=== PATIENT | female | born 1955 | race Caucasian/White ===

== ENCOUNTER 2017-04-16 21:37 | Emergency (ER) | payer BC, OTHER ==
[~2017-04-16] VITALS: Ht 165.1 cm; Wt 53.6 kg
[2017-04-16] MEDS ORDERED: NS 1,000 ML IV SCH (22:00)
[2017-04-16] MEDS ORDERED: MORPHINE 2 MG/ML 1ML SYRINGE IV ONE (22:00)
[2017-04-16] MEDS ORDERED: ONDANSETRON 4MG/2ML VIAL (J2405) IV ONE (22:00)
[2017-04-16 23:09] LABS: BASO % 0.1 % (0.0-1.0); EOS # 0.1 10^3/uL (0.0-0.50); EOS % 0.8 % (0.0-3.0); IMMATURE GRANULOCYTE % 0.5 % (0-0); LYMPH # 1.1 10^3/uL (1.5-4.5); MEAN CORPUSCULAR HEMOGLOBIN 32.8 pg (27.0-33.0); MEAN CORPUSCULAR HGB CONC 34.9 g/dl (32.0-36.5); MEAN CORPUSCULAR VOLUME 94.1 fl (80.0-96.0); MONO # 0.9 10^3/uL (0.0-0.8); MONO % 10.5 % (0.0-5.0); NEUTROPHILS # 6.6 10^3/uL (1.8-7.7); NEUTROPHILS % 75.1 % (36.0-66.0); PLATELET COUNT, AUTOMATED 262 10^3/uL (150-450); RED CELL DISTRIBUTION WIDTH 13.2 % (11.5-14.5); WHITE BLOOD COUNT 8.8 10^3/uL (4.0-10.0)
[2017-04-16 23:22] LABS: INR 0.98
[2017-04-16] MEDS ORDERED: HEPARIN DRIP 25,000 UNITS in APPROPRIATE DILUENT 1 EA IV SCH (23:33)
[2017-04-16] MEDS ORDERED: HEPARIN SOD (PORCINE) 5000 UNITS/ML VIAL IV ONE (23:45)
[2017-04-16 23:52] LABS: BLOOD UREA NITROGEN 11 MG/DL (7-18); CALCIUM LEVEL 8.5 MG/DL (8.8-10.2); CARBON DIOXIDE LEVEL 24 MEQ/L (21-32); CHLORIDE LEVEL 87 MEQ/L (98-107); CREATININE FOR GFR 0.62 MG/DL (0.55-1.02); GLUCOSE, FASTING 92 MG/DL (80-110); POTASSIUM SERUM 3.8 MEQ/L (3.5-5.1)
[2017-04-17] MEDS ORDERED: ISOVUE-370 76% 100ML VIAL (Q9967) As Ordered ONE (00:03)
[2017-04-17 00:08] VITALS: BP 157/68
[2017-04-17 00:12] LABS: ANION GAP 10 MEQ/L (8-16); SODIUM LEVEL 121 MEQ/L (136-145)
--- NOTE | 2017-04-17 07:59 | ECGEPIP ---
Stationary ECG Study [facility] - ED Test Date: 2017-04-16 Pat Name: BRIDGETT MORA Department: Room: - Gender: F [employer] Supervisor: eva : [id number] Requested By: CATRACHITO HENDERSON Order Number: [id number] Reading MD: Vasiliy Valencia Measurements Intervals [place] Rate: 72 P: 85 [place]: 185 QRS: 53 QRSD: 85 T: 79 QT: 438 QTc: 481 Interpretive Statements SINUS RHYTHM LEFT VENTRICULAR HYPERTROPHY AND ST-T CHANGE NO PRIORS FOR COMPARISON Electronically Signed On 04-17-2017 7:58:54 EST by Vasiliy Valencia
== END 2017-04-17 01:54 | disposition short-term general hospital (02) ==
LOC: M ED 21:37
DX: I99.8 Other disorder of circulatory system (principal); Z88.8 Allergy status to other drugs, medicaments and biological substances; Z86.79 Personal history of other diseases of the circulatory system
CPT/HCPCS: 80048; 82550; 82553; 85025; 85610; 85730; 93005; 96374; 96375; 96376; 99291; J2405; Q9967

== ENCOUNTER 2017-12-19 13:25 | Inpatient (IN) | payer BC, OTHER ==
[~2017-12-19 13:25] MED LIST: BISACODYL 10 MG SUPP PR; FLEET ENEMA PR; MIRALAX *UNIT DOSE* 17GM PACKET PO; MOM 30ML SUSPENSION UDC PO; ONDANSETRON 4 MG TAB (S0181) PO; ONDANSETRON 4MG/2ML VIAL (J2405) IM; guaiFENesin SYRUP 200 MG/10 ML UDC PO
[2017-12-19] MEDS: PREGABALIN 50 MG CAP (LYRICA) PO ×2 (15:17→22:01)
[2017-12-19] MEDS: ACETAMINOPHEN TAB 650MG DOSE (2X325MG) PO ×2 (15:18→23:32)
[2017-12-19] MEDS ORDERED: CILOSTAZOL 100 MG TAB (PLETAL) PO (17:30)
[2017-12-19] MEDS: RIVAROXABAN 20 MG TAB (XARELTO) PO (18:15)
[2017-12-19] MEDS: SIMETHICONE 80 MG CHEW TAB PO ×2 (18:16→23:29)
[2017-12-19] MEDS: SENNA 8.6 MG TAB (SENOKOT) PO (22:00)
[2017-12-19] MEDS: traMADol 50 MG TAB PO (22:01)
[2017-12-19] MEDS: ATORVASTATIN 20 MG TAB PO (22:02)
[2017-12-19] MEDS ORDERED: IPRATROPIUM 0.5MG/ALBUTEROL 2.5MG INH SOL UD 3ML (DUONEB)(J7620) NEB (23:45)
[2017-12-20] MEDS: SIMETHICONE 80 MG CHEW TAB PO ×4 (05:54→23:32)
[2017-12-20] MEDS: ACETAMINOPHEN TAB 650MG DOSE (2X325MG) PO (05:54)
[2017-12-20 07:00] LABS: BASO % 0.4 % (0.0-1.0); EOS # 0.1 10^3/uL (0.0-0.50); EOS % 1.7 % (0.0-3.0); HEMATOCRIT 23.9 % (36.0-47.0); HEMOGLOBIN 7.7 g/dl (12.0-15.5); IMMATURE GRANULOCYTE % 0.5 % (0-3.0); LYMPH # 1.7 10^3/uL (1.5-4.5); LYMPH % 21.4 % (24.0-44.0); MEAN CORPUSCULAR HEMOGLOBIN 30.1 pg (27.0-33.0); MEAN CORPUSCULAR HGB CONC 32.2 g/dl (32.0-36.5); MEAN CORPUSCULAR VOLUME 93.4 fl (80.0-96.0); MONO # 0.8 10^3/uL (0.0-0.8); MONO % 10.3 % (0.0-5.0); NEUTROPHILS # 5.3 10^3/uL (1.8-7.7); NEUTROPHILS % 65.7 % (36.0-66.0); PLATELET COUNT, AUTOMATED 726 10^3/uL (150-450); RED BLOOD COUNT 2.56 10^6/uL (4.00-5.40); RED CELL DISTRIBUTION WIDTH 14.1 % (11.5-14.5)
[2017-12-20 07:26] LABS: ALBUMIN 2.4 GM/DL (3.2-5.2); ALBUMIN/GLOBULIN RATIO 0.47 (1.00-1.93); ALKALINE PHOSPHATASE 84 U/L (45-117); ALT/SGPT 30 U/L (12-78); ANION GAP 8 MEQ/L (8-16); AST/SGOT 28 U/L (7-37); BILIRUBIN,TOTAL 0.2 MG/DL (0.2-1.0); BLOOD UREA NITROGEN 16 MG/DL (7-18); CALCIUM LEVEL 8.6 MG/DL (8.8-10.2); CARBON DIOXIDE LEVEL 27 MEQ/L (21-32); CHLORIDE LEVEL 104 MEQ/L (98-107); CREATININE FOR GFR 0.75 MG/DL (0.55-1.30); GLOMERULAR FILTRATION RATE > 60.0 (>45); GLUCOSE, FASTING 92 MG/DL (70-100); POTASSIUM SERUM 3.7 MEQ/L (3.5-5.1); SODIUM LEVEL 139 MEQ/L (136-145); TOTAL PROTEIN 7.5 GM/DL (6.4-8.2)
[2017-12-20] MEDS: THIAMINE 100 MG TAB PO (08:46)
[2017-12-20] MEDS: FOLIC ACID 1 MG TAB PO (08:46)
[2017-12-20] MEDS: FUROSEMIDE 40 MG TAB PO (08:46)
[2017-12-20] MEDS: amLODIPine 5 MG TAB PO (08:46)
[2017-12-20] MEDS: BISOPROLOL FUMARATE 5 MG TAB PO (08:46)
[2017-12-20] MEDS: MAGNESIUM OXIDE 400 MG TAB (MAG-OX) PO (08:47)
[2017-12-20] MEDS: CLOPIDOGREL 75 MG TAB PO (08:47)
[2017-12-20] MEDS: PREGABALIN 50 MG CAP (LYRICA) PO ×3 (08:47→21:29)
[2017-12-20] MEDS: SERTRALINE HCL 50 MG TAB PO (08:47)
[2017-12-20] MEDS: NICOTINE 14 MG/24 HR TRANSDERMAL TD (08:48)
[2017-12-20] MEDS: traMADol 50 MG TAB PO ×3 (10:27→21:29)
[2017-12-20] MEDS: RIVAROXABAN 20 MG TAB (XARELTO) PO (17:14)
[2017-12-20] MEDS: ATORVASTATIN 20 MG TAB PO (21:29)
[2017-12-20] MEDS: SENNA 8.6 MG TAB (SENOKOT) PO (21:29)
[2017-12-21] MEDS: SIMETHICONE 80 MG CHEW TAB PO ×3 (06:00→17:09)
[2017-12-21 07:37] LABS: ANION GAP 6 MEQ/L (8-16); BLOOD UREA NITROGEN 14 MG/DL (7-18); CALCIUM LEVEL 8.9 MG/DL (8.8-10.2); CARBON DIOXIDE LEVEL 29 MEQ/L (21-32); CHLORIDE LEVEL 103 MEQ/L (98-107); CREATININE FOR GFR 0.81 MG/DL (0.55-1.30); GLOMERULAR FILTRATION RATE > 60.0 (>45); GLUCOSE, FASTING 84 MG/DL (70-100); POTASSIUM SERUM 3.9 MEQ/L (3.5-5.1); SODIUM LEVEL 138 MEQ/L (136-145)
[2017-12-21] MEDS: FOLIC ACID 1 MG TAB PO (08:15)
[2017-12-21] MEDS: CLOPIDOGREL 75 MG TAB PO (08:16)
[2017-12-21] MEDS: SERTRALINE HCL 50 MG TAB PO (08:16)
[2017-12-21] MEDS: NICOTINE 14 MG/24 HR TRANSDERMAL TD (08:16)
[2017-12-21] MEDS: amLODIPine 5 MG TAB PO (08:16)
[2017-12-21] MEDS: PREGABALIN 50 MG CAP (LYRICA) PO ×3 (08:16→21:29)
[2017-12-21] MEDS: BISOPROLOL FUMARATE 5 MG TAB PO (08:17)
[2017-12-21] MEDS: THIAMINE 100 MG TAB PO (08:17)
[2017-12-21] MEDS: FUROSEMIDE 40 MG TAB PO (08:17)
[2017-12-21] MEDS: MAGNESIUM OXIDE 400 MG TAB (MAG-OX) PO (08:18)
[2017-12-21] MEDS: traMADol 50 MG TAB PO ×3 (08:18→17:09)
[2017-12-21] MEDS: RIVAROXABAN 20 MG TAB (XARELTO) PO (17:09)
[2017-12-21] MEDS: SENNA 8.6 MG TAB (SENOKOT) PO (21:29)
[2017-12-21] MEDS: BISACODYL 5 MG TAB PO (21:29)
[2017-12-21] MEDS: ATORVASTATIN 20 MG TAB PO (21:29)
[2017-12-22] MEDS: traMADol 50 MG TAB PO ×3 (03:42→13:11)
[2017-12-22] MEDS: SIMETHICONE 80 MG CHEW TAB PO ×3 (06:00→11:54)
[2017-12-22] MEDS: FOLIC ACID 1 MG TAB PO (08:04)
[2017-12-22] MEDS: amLODIPine 5 MG TAB PO (08:04)
[2017-12-22] MEDS: THIAMINE 100 MG TAB PO (08:04)
[2017-12-22] MEDS: PREGABALIN 50 MG CAP (LYRICA) PO (08:04)
[2017-12-22] MEDS: CLOPIDOGREL 75 MG TAB PO (08:05)
[2017-12-22] MEDS: SERTRALINE HCL 50 MG TAB PO (08:05)
[2017-12-22] MEDS: MAGNESIUM OXIDE 400 MG TAB (MAG-OX) PO (08:05)
[2017-12-22] MEDS: BISOPROLOL FUMARATE 5 MG TAB PO (08:05)
[2017-12-22] MEDS: FUROSEMIDE 40 MG TAB PO (08:05)
[2017-12-22] MEDS: NICOTINE 14 MG/24 HR TRANSDERMAL TD (08:06)
[2017-12-22 08:11] LABS: ANION GAP 7 MEQ/L (8-16); BLOOD UREA NITROGEN 14 MG/DL (7-18); CALCIUM LEVEL 8.8 MG/DL (8.8-10.2); CARBON DIOXIDE LEVEL 29 MEQ/L (21-32); CHLORIDE LEVEL 104 MEQ/L (98-107); CREATININE FOR GFR 0.85 MG/DL (0.55-1.30); GLOMERULAR FILTRATION RATE > 60.0 (>45); GLUCOSE, FASTING 88 MG/DL (70-100); POTASSIUM SERUM 3.9 MEQ/L (3.5-5.1); SODIUM LEVEL 140 MEQ/L (136-145)
[2017-12-22 09:33] LABS: BASO % 0.2 % (0.0-1.0); EOS # 0.1 10^3/uL (0.0-0.50); EOS % 1.3 % (0.0-3.0); HEMATOCRIT 25.3 % (36.0-47.0); HEMOGLOBIN 8.1 g/dl (12.0-15.5); IMMATURE GRANULOCYTE % 0.2 % (0-3.0); LYMPH # 1.6 10^3/uL (1.5-4.5); LYMPH % 19.3 % (24.0-44.0); MEAN CORPUSCULAR HEMOGLOBIN 30.7 pg (27.0-33.0); MEAN CORPUSCULAR VOLUME 95.8 fl (80.0-96.0); MONO # 0.8 10^3/uL (0.0-0.8); MONO % 9.4 % (0.0-5.0); NEUTROPHILS # 5.7 10^3/uL (1.8-7.7); NEUTROPHILS % 69.6 % (36.0-66.0); PLATELET COUNT, AUTOMATED 697 10^3/uL (150-450); RED BLOOD COUNT 2.64 10^6/uL (4.00-5.40); RED CELL DISTRIBUTION WIDTH 14.3 % (11.5-14.5); WHITE BLOOD COUNT 8.2 10^3/uL (4.0-10.0)
[2017-12-22 10:16] LABS: ERYTHROCYTE SEDIMENTATION RATE 127 mm/hr (0-30)
[2017-12-22 13:42] LABS: INR 1.59; PROTHROMBIN TIME 19.3 SECONDS (12.1-14.4)
[2017-12-22 13:43] LABS: PARTIAL THROMBOPLASTIN TIME 55.3 SECONDS (25.4-37.6)
[2017-12-22] MEDS: MORPHINE 4 MG/ML 1ML VIAL/SYRINGE (J2270) IV (15:28)
[2017-12-23] MEDS: CLOPIDOGREL 75 MG TAB PO (09:00)
[2017-12-23] MEDS: SERTRALINE HCL 50 MG TAB PO (09:00)
[2017-12-23] MEDS: amLODIPine 5 MG TAB PO (09:00)
[2017-12-23] MEDS: FUROSEMIDE 40 MG TAB PO (09:00)
[2017-12-23] MEDS: FOLIC ACID 1 MG TAB PO (09:00)
[2017-12-23] MEDS: NICOTINE 14 MG/24 HR TRANSDERMAL TD (09:00)
[2017-12-23] MEDS: BISOPROLOL FUMARATE 5 MG TAB PO (09:00)
[2017-12-23] MEDS: MAGNESIUM OXIDE 400 MG TAB (MAG-OX) PO (09:00)
[2017-12-23] MEDS ORDERED: guaiFENesin SYRUP 200 MG/10 ML UDC PO (14:00)
[2017-12-23] MEDS ORDERED: BISACODYL 10 MG SUPP PR (14:00)
[2017-12-23] MEDS ORDERED: SIMETHICONE 80 MG CHEW TAB PO (14:00)
[2017-12-23] MEDS ORDERED: IPRATROPIUM 0.5MG/ALBUTEROL 2.5MG INH SOL UD 3ML (DUONEB)(J7620) NEB (14:00)
[2017-12-23] MEDS ORDERED: BISACODYL 5 MG TAB PO (14:00)
[2017-12-23] MEDS ORDERED: MOM 30ML SUSPENSION UDC PO (14:00)
[2017-12-23] MEDS ORDERED: MIRALAX *UNIT DOSE* 17GM PACKET PO (14:00)
[2017-12-23] MEDS ORDERED: ONDANSETRON 4MG/2ML VIAL (J2405) IM (14:00)
[2017-12-23] MEDS ORDERED: FLEET ENEMA PR (14:00)
[2017-12-23] MEDS: PREGABALIN 50 MG CAP (LYRICA) PO ×2 (15:30→20:45)
[2017-12-23] MEDS: RIVAROXABAN 20 MG TAB (XARELTO) PO (18:26)
[2017-12-23] MEDS: SENNA 8.6 MG TAB (SENOKOT) PO (20:45)
[2017-12-23] MEDS: ATORVASTATIN 20 MG TAB PO (20:45)
[2017-12-23] MEDS: traMADol 50 MG TAB PO (23:39)
[2017-12-24] MEDS: FOLIC ACID 1 MG TAB PO (08:03)
[2017-12-24] MEDS: FUROSEMIDE 40 MG TAB PO (08:03)
[2017-12-24] MEDS: THIAMINE 100 MG TAB PO (08:03)
[2017-12-24] MEDS: PREGABALIN 50 MG CAP (LYRICA) PO ×3 (08:03→21:20)
[2017-12-24] MEDS: BISOPROLOL FUMARATE 5 MG TAB PO (08:04)
[2017-12-24] MEDS: MAGNESIUM OXIDE 400 MG TAB (MAG-OX) PO (08:05)
[2017-12-24] MEDS: traMADol 50 MG TAB PO ×3 (08:05→21:21)
[2017-12-24] MEDS: CLOPIDOGREL 75 MG TAB PO (08:05)
[2017-12-24] MEDS: NICOTINE 14 MG/24 HR TRANSDERMAL TD (08:06)
[2017-12-24] MEDS: amLODIPine 5 MG TAB PO (08:06)
[2017-12-24] MEDS: SERTRALINE HCL 50 MG TAB PO (08:06)
[2017-12-24] MEDS: RIVAROXABAN 20 MG TAB (XARELTO) PO (16:58)
[2017-12-24] MEDS: ACETAMINOPHEN TAB 650MG DOSE (2X325MG) PO (18:05)
[2017-12-24] MEDS: ATORVASTATIN 20 MG TAB PO (21:20)
[2017-12-24] MEDS: SENNA 8.6 MG TAB (SENOKOT) PO (21:20)
[2017-12-25] MEDS: NICOTINE 14 MG/24 HR TRANSDERMAL TD (09:45)
[2017-12-25] MEDS: THIAMINE 100 MG TAB PO (09:46)
[2017-12-25] MEDS: FOLIC ACID 1 MG TAB PO (09:46)
[2017-12-25] MEDS: BISOPROLOL FUMARATE 5 MG TAB PO (09:46)
[2017-12-25] MEDS: FUROSEMIDE 40 MG TAB PO (09:46)
[2017-12-25] MEDS: SERTRALINE HCL 50 MG TAB PO (09:46)
[2017-12-25] MEDS: CLOPIDOGREL 75 MG TAB PO (09:46)
[2017-12-25] MEDS: amLODIPine 5 MG TAB PO (09:46)
[2017-12-25] MEDS: PREGABALIN 50 MG CAP (LYRICA) PO ×3 (09:46→20:35)
[2017-12-25] MEDS: MAGNESIUM OXIDE 400 MG TAB (MAG-OX) PO (09:46)
[2017-12-25] MEDS: RIVAROXABAN 20 MG TAB (XARELTO) PO (17:09)
[2017-12-25] MEDS: ATORVASTATIN 20 MG TAB PO (20:35)
[2017-12-25] MEDS: SENNA 8.6 MG TAB (SENOKOT) PO (20:35)
[2017-12-26] MEDS: ONDANSETRON 4 MG TAB (S0181) PO (03:27)
[2017-12-26] MEDS: PREGABALIN 50 MG CAP (LYRICA) PO ×3 (09:23→20:15)
[2017-12-26] MEDS: SERTRALINE HCL 50 MG TAB PO (09:23)
[2017-12-26] MEDS: ACETAMINOPHEN TAB 650MG DOSE (2X325MG) PO (09:25)
[2017-12-26] MEDS: THIAMINE 100 MG TAB PO (09:25)
[2017-12-26] MEDS: MAGNESIUM OXIDE 400 MG TAB (MAG-OX) PO (09:25)
[2017-12-26] MEDS: MAALOX 30 ML SUSP *UDC PO (09:25)
[2017-12-26] MEDS: CLOPIDOGREL 75 MG TAB PO (09:25)
[2017-12-26] MEDS: FOLIC ACID 1 MG TAB PO (09:26)
[2017-12-26] MEDS: amLODIPine 5 MG TAB PO (09:26)
[2017-12-26] MEDS: BISOPROLOL FUMARATE 5 MG TAB PO (09:26)
[2017-12-26] MEDS: FUROSEMIDE 40 MG TAB PO (09:26)
[2017-12-26] MEDS ORDERED: ISOVUE-370 76% 100ML VIAL (Q9967) As Ordered (09:27)
[2017-12-26] MEDS: NICOTINE 14 MG/24 HR TRANSDERMAL TD (09:27)
[2017-12-26 09:37] LABS: BASO % 0.3 % (0.0-1.0); EOS # 0.1 10^3/uL (0.0-0.50); EOS % 1.2 % (0.0-3.0); HEMATOCRIT 26.3 % (36.0-47.0); HEMOGLOBIN 8.3 g/dl (12.0-15.5); IMMATURE GRANULOCYTE % 0.4 % (0-3.0); LYMPH # 1.4 10^3/uL (1.5-4.5); LYMPH % 18.4 % (24.0-44.0); MEAN CORPUSCULAR HEMOGLOBIN 30.3 pg (27.0-33.0); MEAN CORPUSCULAR HGB CONC 31.6 g/dl (32.0-36.5); MONO # 1.1 10^3/uL (0.0-0.8); MONO % 14.1 % (0.0-5.0); NEUTROPHILS % 65.6 % (36.0-66.0); PLATELET COUNT, AUTOMATED 485 10^3/uL (150-450); RED BLOOD COUNT 2.74 10^6/uL (4.00-5.40); RED CELL DISTRIBUTION WIDTH 14.3 % (11.5-14.5); WHITE BLOOD COUNT 7.7 10^3/uL (4.0-10.0)
[2017-12-26 09:49] LABS: ALBUMIN 2.4 GM/DL (3.2-5.2); ALBUMIN/GLOBULIN RATIO 0.47 (1.00-1.93); ALKALINE PHOSPHATASE 76 U/L (45-117); ALT/SGPT 17 U/L (12-78); ANION GAP 9 MEQ/L (8-16); AST/SGOT 21 U/L (7-37); BILIRUBIN,TOTAL 0.3 MG/DL (0.2-1.0); BLOOD UREA NITROGEN 13 MG/DL (7-18); CALCIUM LEVEL 8.9 MG/DL (8.8-10.2); CARBON DIOXIDE LEVEL 27 MEQ/L (21-32); CHLORIDE LEVEL 107 MEQ/L (98-107); CREATININE FOR GFR 0.91 MG/DL (0.55-1.30); GLOMERULAR FILTRATION RATE > 60.0 (>45); GLUCOSE, FASTING 94 MG/DL (70-100); MAGNESIUM LEVEL 1.7 MG/DL (1.8-2.4); POTASSIUM SERUM 3.2 MEQ/L (3.5-5.1); SODIUM LEVEL 143 MEQ/L (136-145); TOTAL PROTEIN 7.5 GM/DL (6.4-8.2)
[2017-12-26 09:50] LABS: CK-MB VALUE MASS < 1.0 NG/ML (<3.6); CPK CREATINE PHOSPHOKINASE 30 U/L (26-192); MB/CK RELATIVE INDEX 3.33 (< OR =4); TROPONIN I < 0.02 NG/ML (< 0.10)
[2017-12-26] MEDS ORDERED: LORazepam 0.5 MG TAB PO (12:15)
[2017-12-26] MEDS: LORazepam 1 MG TAB PO (13:04)
[2017-12-26] MEDS: POTASSIUM CHLORIDE 10 MEQ SR TABLET PO (13:04)
[2017-12-26] MEDS: MAG SULF 1GM/100ML (MAG RUN) 1 GM in APPROPRIATE DILUENT 1 EA IV (13:59)
[2017-12-26 15:48] LABS: CK-MB VALUE MASS < 1.0 NG/ML (<3.6); CPK CREATINE PHOSPHOKINASE 35 U/L (26-192); MB/CK RELATIVE INDEX 2.85 (< OR =4); TROPONIN I < 0.02 NG/ML (< 0.10)
[2017-12-26] MEDS: RIVAROXABAN 20 MG TAB (XARELTO) PO (17:10)
[2017-12-26] MEDS: SENNA 8.6 MG TAB (SENOKOT) PO (20:15)
[2017-12-26] MEDS: ATORVASTATIN 20 MG TAB PO (20:15)
[2017-12-27 06:57] LABS: HEMATOCRIT 25.5 % (36.0-47.0); HEMOGLOBIN 8.1 g/dl (12.0-15.5); MEAN CORPUSCULAR HEMOGLOBIN 29.6 pg (27.0-33.0); MEAN CORPUSCULAR HGB CONC 31.8 g/dl (32.0-36.5); MEAN CORPUSCULAR VOLUME 93.1 fl (80.0-96.0); PLATELET COUNT, AUTOMATED 483 10^3/uL (150-450); RED BLOOD COUNT 2.74 10^6/uL (4.00-5.40); RED CELL DISTRIBUTION WIDTH 14.5 % (11.5-14.5); WHITE BLOOD COUNT 7.2 10^3/uL (4.0-10.0)
[2017-12-27 07:23] LABS: ANION GAP 8 MEQ/L (8-16); BLOOD UREA NITROGEN 14 MG/DL (7-18); CALCIUM LEVEL 8.9 MG/DL (8.8-10.2); CARBON DIOXIDE LEVEL 28 MEQ/L (21-32); CHLORIDE LEVEL 106 MEQ/L (98-107); CREATININE FOR GFR 0.73 MG/DL (0.55-1.30); GLOMERULAR FILTRATION RATE > 60.0 (>45); GLUCOSE, FASTING 81 MG/DL (70-100); POTASSIUM SERUM 4.6 MEQ/L (3.5-5.1); SODIUM LEVEL 142 MEQ/L (136-145)
[2017-12-27] MEDS: THIAMINE 100 MG TAB PO (09:33)
[2017-12-27] MEDS: FUROSEMIDE 40 MG TAB PO (09:33)
[2017-12-27] MEDS: MAGNESIUM OXIDE 400 MG TAB (MAG-OX) PO (09:33)
[2017-12-27] MEDS: SERTRALINE HCL 50 MG TAB PO (09:33)
[2017-12-27] MEDS: PREGABALIN 50 MG CAP (LYRICA) PO ×3 (09:33→21:08)
[2017-12-27] MEDS: FOLIC ACID 1 MG TAB PO (09:34)
[2017-12-27] MEDS: BISOPROLOL FUMARATE 5 MG TAB PO (09:34)
[2017-12-27] MEDS: NICOTINE 14 MG/24 HR TRANSDERMAL TD (09:34)
[2017-12-27] MEDS: amLODIPine 5 MG TAB PO (09:34)
[2017-12-27] MEDS: CLOPIDOGREL 75 MG TAB PO (09:34)
[2017-12-27] MEDS: RIVAROXABAN 20 MG TAB (XARELTO) PO (17:07)
[2017-12-27] MEDS: ACETAMINOPHEN TAB 650MG DOSE (2X325MG) PO (19:16)
[2017-12-27] MEDS: SENNA 8.6 MG TAB (SENOKOT) PO (21:08)
[2017-12-27] MEDS: ATORVASTATIN 20 MG TAB PO (21:08)
[2017-12-28] MEDS: ACETAMINOPHEN TAB 650MG DOSE (2X325MG) PO ×2 (07:03→17:20)
[2017-12-28] MEDS: SERTRALINE HCL 50 MG TAB PO (09:07)
[2017-12-28] MEDS: FOLIC ACID 1 MG TAB PO (09:07)
[2017-12-28] MEDS: FUROSEMIDE 40 MG TAB PO (09:07)
[2017-12-28] MEDS: CLOPIDOGREL 75 MG TAB PO (09:07)
[2017-12-28] MEDS: THIAMINE 100 MG TAB PO (09:07)
[2017-12-28] MEDS: MAGNESIUM OXIDE 400 MG TAB (MAG-OX) PO (09:08)
[2017-12-28] MEDS: NICOTINE 14 MG/24 HR TRANSDERMAL TD (09:08)
[2017-12-28] MEDS: BISOPROLOL FUMARATE 5 MG TAB PO (09:08)
[2017-12-28] MEDS: PREGABALIN 50 MG CAP (LYRICA) PO ×3 (09:08→22:30)
[2017-12-28] MEDS: amLODIPine 5 MG TAB PO (09:09)
[2017-12-28] MEDS: RIVAROXABAN 20 MG TAB (XARELTO) PO (17:20)
[2017-12-28] MEDS: SENNA 8.6 MG TAB (SENOKOT) PO (21:00)
[2017-12-28] MEDS: ATORVASTATIN 20 MG TAB PO (22:30)
[2017-12-29 07:17] LABS: HEMATOCRIT 27.7 % (36.0-47.0); HEMOGLOBIN 8.7 g/dl (12.0-15.5); MEAN CORPUSCULAR HEMOGLOBIN 29.7 pg (27.0-33.0); MEAN CORPUSCULAR HGB CONC 31.4 g/dl (32.0-36.5); MEAN CORPUSCULAR VOLUME 94.5 fl (80.0-96.0); PLATELET COUNT, AUTOMATED 416 10^3/uL (150-450); RED BLOOD COUNT 2.93 10^6/uL (4.00-5.40); RED CELL DISTRIBUTION WIDTH 14.2 % (11.5-14.5); WHITE BLOOD COUNT 8.3 10^3/uL (4.0-10.0)
[2017-12-29 07:37] LABS: ANION GAP 9 MEQ/L (8-16); BLOOD UREA NITROGEN 12 MG/DL (7-18); CALCIUM LEVEL 8.9 MG/DL (8.8-10.2); CARBON DIOXIDE LEVEL 28 MEQ/L (21-32); CHLORIDE LEVEL 107 MEQ/L (98-107); CREATININE FOR GFR 0.74 MG/DL (0.55-1.30); GLOMERULAR FILTRATION RATE > 60.0 (>45); GLUCOSE, FASTING 87 MG/DL (70-100); MAGNESIUM LEVEL 2.1 MG/DL (1.8-2.4); POTASSIUM SERUM 4.4 MEQ/L (3.5-5.1); SODIUM LEVEL 144 MEQ/L (136-145)
[2017-12-29] MEDS: ACETAMINOPHEN TAB 650MG DOSE (2X325MG) PO (08:43)
[2017-12-29] MEDS: CLOPIDOGREL 75 MG TAB PO (08:44)
[2017-12-29] MEDS: NICOTINE 14 MG/24 HR TRANSDERMAL TD (08:44)
[2017-12-29] MEDS: THIAMINE 100 MG TAB PO (08:44)
[2017-12-29] MEDS: MAGNESIUM OXIDE 400 MG TAB (MAG-OX) PO (08:44)
[2017-12-29] MEDS: SERTRALINE HCL 50 MG TAB PO (08:44)
[2017-12-29] MEDS: FUROSEMIDE 40 MG TAB PO (08:44)
[2017-12-29] MEDS: BISOPROLOL FUMARATE 5 MG TAB PO (08:44)
[2017-12-29] MEDS: FOLIC ACID 1 MG TAB PO (08:45)
[2017-12-29] MEDS: amLODIPine 5 MG TAB PO (08:45)
[2017-12-29] MEDS: PREGABALIN 50 MG CAP (LYRICA) PO ×2 (08:45→14:33)
[2017-12-29] MEDS: traMADol 50 MG TAB PO (14:33)
== END 2017-12-29 14:35 | disposition home or self-care (01) | DRG 58 ==
LOC: M PM&R 13:25
DX: I69.398 Other sequelae of cerebral infarction (principal); K55.1 Chronic vascular disorders of intestine; E83.42 Hypomagnesemia; I10 Essential (primary) hypertension; I73.9 Peripheral vascular disease, unspecified; F17.210 Nicotine dependence, cigarettes, uncomplicated; J44.9 Chronic obstructive pulmonary disease, unspecified; F10.10 Alcohol abuse, uncomplicated; F32.9 Major depressive disorder, single episode, unspecified; R14.0 Abdominal distension (gaseous); Z79.899 Other long term (current) drug therapy; Z88.6 Allergy status to analgesic agent; Z74.09 Other reduced mobility; F41.9 Anxiety disorder, unspecified; E87.6 Hypokalemia

== ENCOUNTER → 2018-05-11 | Outpatient (CLI) | payer BC, OTHER ==
[~2018-05-11] MED LIST changes: -BISACODYL 10 MG SUPP PR; -FLEET ENEMA PR; +ISOVUE-370 76% 100ML VIAL (Q9967) As Ordered; -MIRALAX *UNIT DOSE* 17GM PACKET PO; -MOM 30ML SUSPENSION UDC PO; -ONDANSETRON 4 MG TAB (S0181) PO; -ONDANSETRON 4MG/2ML VIAL (J2405) IM; -guaiFENesin SYRUP 200 MG/10 ML UDC PO
== END ==
LOC: M RAD 11:45
DX: Z95.828 Presence of other vascular implants and grafts (principal); I72.9 Aneurysm of unspecified site
CPT/HCPCS: Q9967

== ENCOUNTER → 2018-09-01 | Outpatient (CLI) | payer BC, OTHER ==
[~2018-09-01] MED LIST changes: +AMLO5TAB6 PO; +ATIV1TAB7 PO; +ATOR80TA59 PO; +Acetaminophen Tab PO; +BISAC5TA PO; +BISO5TAB5 PO; +CILO50TA PO; +FOLI1TAB11 PO; +FURO40TA2 PO; +GUAI100S27 PO; -ISOVUE-370 76% 100ML VIAL (Q9967) As Ordered; +ISOVUE-370 76% 125ML VIAL (Q9967 PER ML) As Ordered ONE; +MAGN400T2 PO; +MIRA3350 PO; +ONDA4TAB5 PO; +PLAV1TAB2 PO; +PREG50CA PO; +SENN18TA PO; +SERT50TA PO; +SIME80TA PO; +SUPE1TAB PO; +TGT14DIS TD; +THIA100T7 PO; +TRAM50TA2 PO; +XARE20TA PO
--- NOTE | 2018-09-01 11:13 | REP ---
CT THORACIC AORTIC ANGIOGRAPHY WITH IV CONTRAST: HISTORY: Thoracic aortic aneurysm without rupture. Comparison chest CT study May 11, 2018. 75 mL of intravenous Isovue 370 is administered. Helical scanning is acquired. Coronal and sagittal MPR and MIP images are generated. CT ANGIOGRAPHIC FINDINGS: The thoracic aorta is ectatic and tortuous. No eder aneurysm is appreciated. The caliber is unchanged. The ascending aorta measures 3.8 cm in AP dimension at the level of the main pulmonary artery segment. There is a stent graft in the innominate artery on the right extending up to the proximal common carotid artery. There is a right common carotid artery to axillary artery surgical graft in place which remains widely patent. Occlusion plug devices are seen in the [place] subclavian artery on the right distal to a proximal right subclavian artery aneurysm. The aneurysm measures 4.0 cm craniocaudal x 3.2 cm medial to lateral x 2.3 cm anteroposterior dimension. It is partially thrombosed. There is some intraluminal contrast opacified blood flow in the subclavian artery aneurysm cavity. This is a little less extensive than on the 05/11/2018 study. The aneurysm diameters appear unchanged. There is a patent left subclavian artery stent and a left axillary stent graft again noted unchanged. There is no evidence of pleural or pericardial effusion. There is mild bibasilar air fibrosis unchanged. Emphysematous changes are noted in the lung [place] as before. No hilar or mediastinal mass or adenopathy is observed. 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 There is still some contrast opacified blood in the lumen of the aneurysm. Patent brachial cephalic artery stents and right carotid to right axillary artery graft. Patent left subclavian artery and axillary artery grafts and stents. Thoracic aortic ectasia and tortuosity. Vascular calcification. Evidence of COPD. Electronically Signed by Wolfgang Cee MD 09/01/2018 11:34 A
== END ==
LOC: M RAD 07:06
PROVIDERS: ATTEND Surgery
DX: I72.0 Aneurysm of carotid artery (principal); I77.810 Thoracic aortic ectasia; Z95.828 Presence of other vascular implants and grafts
CPT/HCPCS: 71275; Q9967

== ENCOUNTER → 2020-10-18 | Outpatient (REF) | payer BC, OTHER, MEDICAID ==
[~2020-10-18] MED LIST changes: +AMLO1TAB24 PO; -AMLO5TAB6 PO; +BISO5TAB14 PO; -BISO5TAB5 PO; +GUAI100L6 PO; -GUAI100S27 PO; -ISOVUE-370 76% 125ML VIAL (Q9967 PER ML) As Ordered ONE; +NICO1DIS10 TD; +ONDA-83 PO; -ONDA4TAB5 PO; +SERT-141 PO; -SERT50TA PO; +SIME80CH5 PO; -SIME80TA PO; -TGT14DIS TD
== END ==
PROVIDERS: ATTEND Internal Medicine
DX: Z53.8 Procedure and treatment not carried out for other reasons (principal)

== ENCOUNTER → 2020-10-19 | Outpatient (REF) | payer BC, OTHER, MEDICAID | PROVIDERS: ATTEND Internal Medicine | DX: Z20.822 Contact with and (suspected) exposure to COVID-19 (principal) ==

== ENCOUNTER → 2020-12-12 | Outpatient (REF) | payer MEDICARE, MEDICAID ==
[2020-12-12 12:34] LABS: BASO % 0.3 % (0.0-1.0); EOS # 0.2 10^3/uL (0.0-0.5); EOS % 2.7 % (0.0-3.0); HEMOGLOBIN 11.2 g/dl (12.0-15.5); LYMPH # 1.5 10^3/uL (1.5-5.0); LYMPH % 26.2 % (24.0-44.0); MEAN CORPUSCULAR HEMOGLOBIN 30.5 pg (27.0-33.0); MEAN CORPUSCULAR HGB CONC 31.1 g/dl (32.0-36.5); MEAN CORPUSCULAR VOLUME 98.1 fl (80.0-96.0); MONO # 0.6 10^3/uL (0.0-0.8); MONO % 10.1 % (2.0-8.0); NEUTROPHILS # 3.5 10^3/uL (1.5-8.5); NEUTROPHILS % 60.4 % (36.0-66.0); PLATELET COUNT, AUTOMATED 251 10^3/uL (150-450); RED BLOOD COUNT 3.67 10^6/uL (4.00-5.40); WHITE BLOOD COUNT 5.8 10^3/uL (4.0-10.0)
[2020-12-12 12:48] LABS: BLOOD UREA NITROGEN 11 MG/DL (7-18); CALCIUM LEVEL 9.4 MG/DL (8.8-10.2); CARBON DIOXIDE LEVEL 28 MEQ/L (21-32); CHLORIDE LEVEL 106 MEQ/L (98-107); CREATININE FOR GFR 0.68 MG/DL (0.55-1.30); GLOMERULAR FILTRATION RATE > 60.0 (>45); GLUCOSE, FASTING 75 MG/DL (70-100); POTASSIUM SERUM 4.2 MEQ/L (3.5-5.1); SODIUM LEVEL 141 MEQ/L (136-145)
== END ==
PROVIDERS: ATTEND Internal Medicine
DX: Z79.899 Other long term (current) drug therapy (principal)

== ENCOUNTER 2021-01-03 13:00 | Outpatient (RCR) | payer MEDICARE, MEDICAID | END 2021-01-06 | LOC: M ST 13:00 | PROVIDERS: ATTEND Internal Medicine | DX: R47.01 Aphasia (principal); R41.3 Other amnesia ==

== ENCOUNTER 2021-01-24 13:00 | Outpatient (RCR) | payer MEDICARE, MEDICAID | END 2021-02-06 | LOC: M ST 13:00 | PROVIDERS: ATTEND Internal Medicine | DX: I63.9 Cerebral infarction, unspecified (principal); R47.01 Aphasia ==

== ENCOUNTER → 2021-02-26 | Outpatient (CLI) | payer MEDICARE, MEDICAID ==
[~2021-02-26] MED LIST changes: +ISOVUE-370 76% 100ML VIAL As Ordered ONE
--- NOTE | 2021-02-26 10:38 | REP ---
INDICATION: AORTIC ANEURYSM OF UNSPECIFIED SITE, WITHOUT RUPTURE. COMPARISON: 09/01/2018.. TECHNIQUE: CT angiogram chest performed following the intravenous administration of 100 cc of Isovue 370. Sagittal and coronal reconstruction images are performed. FINDINGS: Lungs: There is no acute infiltrate. Stable chronic interstitial fibrotic changes seen bilaterally. Mediastinum: No adenopathy. Pulmonary arteries: No evidence of pulmonary embolism. [place]: No adenopathy. Axilla: No adenopathy. Pleura: No effusion. Heart: Mildly enlarged. Thoracic aorta: Once again the thoracic aorta is noted to be diffusely ectatic and tortuous. There is no dissection. The caliber is unchanged compared to the prior study. The ascending thoracic aorta measures 4.1 cm in AP dimension, proximal aortic arch measures 3.4 cm, the superior aortic arch 3.2 cm, proximal descending thoracic aorta 3.1 cm and the distal descending thoracic aorta 3.2 cm. A stent graft is again seen in the innominate artery extending to the proximal right common carotid artery. There is a patent graft from right common carotid artery to axillary artery. A thrombosed proximal right subclavian artery aneurysm is again noted, unchanged in size, with diffuse thrombosis of the [place] right subclavian artery. There is a left subclavian artery stent which is definitely patent proximally with internal contrast noted. There is a left axillary artery stent. Patency of the distal left subclavian artery and left axillary artery cannot be documented, I do not see definite intraluminal contrast, evaluation is limited due to artifact from adjacent venous contrast from left upper extremity IV contrast injection. Upper abdominal structures: Unremarkable. Visualized osseous structures: There are mild degenerative changes of the spine. IMPRESSION: No CT evidence of pulmonary embolism. No infiltrate seen. Diffuse ectasia and tortuosity of the thoracic aorta stable compared to the prior study. Patent stent graft in the innominate artery and patent right common carotid artery to axillary artery surgical graft. Thrombosed right subclavian artery aneurysm. Left subclavian artery and left axillary artery stent. There is definite patency of the proximal left subclavian artery stent, but patency of the distal left subclavian artery and left axillary artery cannot be documented, evaluation is limited due to artifact from adjacent venous contrast from left upper extremity IV contrast injection. <Electronically signed by Adama Aguero > 02/26/21 [id number]
== END ==
LOC: M RAD 08:53
PROVIDERS: ATTEND Surgery
DX: I71.9 Aortic aneurysm of unspecified site, without rupture (principal); Z95.5 Presence of coronary angioplasty implant and graft
CPT/HCPCS: 71275; Q9967

== ENCOUNTER 2021-03-07 13:47 | Outpatient (RCR) | payer MEDICARE, MEDICAID ==
[~2021-03-07 13:47] MED LIST changes: -ISOVUE-370 76% 100ML VIAL As Ordered ONE
== END 2021-03-08 ==
LOC: M ST 13:47
PROVIDERS: ATTEND Internal Medicine
DX: R47.01 Aphasia (principal); R41.3 Other amnesia

== ENCOUNTER 2021-03-28 12:44 | Outpatient (RCR) | payer MEDICARE, MEDICAID | END 2021-04-08 | LOC: M ST 12:44 | PROVIDERS: ATTEND Internal Medicine | DX: R47.01 Aphasia (principal); R41.3 Other amnesia ==

== ENCOUNTER 2021-04-11 12:45 | Outpatient (RCR) | payer MEDICARE, MEDICAID | END 2021-05-08 | LOC: M OT 12:45 | PROVIDERS: ATTEND Internal Medicine | DX: R47.01 Aphasia (principal); R41.3 Other amnesia ==

== ENCOUNTER → 2021-09-10 | Outpatient (REF) | payer MEDICARE, MEDICAID ==
[2021-09-10 10:42] LABS: BASO % 0.4 % (0.0-1.0); EOS # 0.1 10^3/uL (0.0-0.5); EOS % 1.4 % (0.0-3.0); HEMATOCRIT 32.1 % (36.0-47.0); HEMOGLOBIN 10.5 g/dl (12.0-15.5); LYMPH # 1.7 10^3/uL (1.5-5.0); LYMPH % 30.2 % (24.0-44.0); MEAN CORPUSCULAR HEMOGLOBIN 30.7 pg (27.0-33.0); MEAN CORPUSCULAR HGB CONC 32.7 g/dl (32.0-36.5); MEAN CORPUSCULAR VOLUME 93.9 fl (80.0-96.0); MONO # 0.6 10^3/uL (0.0-0.8); NEUTROPHILS # 3.2 10^3/uL (1.5-8.5); NEUTROPHILS % 57.6 % (36.0-66.0); PLATELET COUNT, AUTOMATED 317 10^3/uL (150-450); RED BLOOD COUNT 3.42 10^6/uL (4.00-5.40); WHITE BLOOD COUNT 5.6 10^3/uL (4.0-10.0)
[2021-09-10 11:18] LABS: ALBUMIN 2.9 GM/DL (3.2-5.2); ALT/SGPT 13 U/L (12-78); BILIRUBIN,TOTAL 0.3 MG/DL (0.2-1.0); BLOOD UREA NITROGEN 9 MG/DL (7-18); CALCIUM LEVEL 8.6 MG/DL (8.8-10.2); CARBON DIOXIDE LEVEL 31 MEQ/L (21-32); CHLORIDE LEVEL 102 MEQ/L (98-107); CHOLESTEROL LEVEL 97 MG/DL (<200); CREATININE FOR GFR 0.69 MG/DL (0.55-1.30); GLOMERULAR FILTRATION RATE > 60.0 (>45); GLUCOSE, FASTING 84 MG/DL (70-100); HDL CHOLESTEROL 48 MG/DL (>40); LDL CHOLESTEROL 40 MG/DL (<100); NON-HDL-C 49 MG/DL; POTASSIUM SERUM 4.7 MEQ/L (3.5-5.1); SODIUM LEVEL 136 MEQ/L (136-145); TOTAL PROTEIN 6.3 GM/DL (6.4-8.2); TRIGLYCERIDES LEVEL 47 MG/DL (<150)
== END ==
PROVIDERS: ATTEND Internal Medicine
DX: I70.208 Unspecified atherosclerosis of native arteries of extremities, other extremity (principal)

== ENCOUNTER → 2022-02-27 | Outpatient (CLI) | payer MEDICARE, MEDICAID ==
[2022-02-27 13:51] LABS: BLOOD UREA NITROGEN 8 MG/DL (7-18); GLOMERULAR FILTRATION RATE > 60.0 (>45)
== END ==
LOC: M PLALAB 11:47
PROVIDERS: ATTEND Surgery
DX: Z01.812 Encounter for preprocedural laboratory examination (principal)

== ENCOUNTER → 2022-03-01 | Outpatient (CLI) | payer MEDICARE, MEDICAID ==
[~2022-03-01] MED LIST changes: +ISOVUE-370 76% 100ML VIAL As Ordered ONE
== END ==
LOC: M RAD 09:54
PROVIDERS: ATTEND Surgery
DX: I72.8 Aneurysm of other specified arteries (principal)
CPT/HCPCS: 71260; Q9967

== ENCOUNTER → 2022-03-11 | Outpatient (REF) | payer MEDICARE, MEDICAID ==
[~2022-03-11] MED LIST changes: -ISOVUE-370 76% 100ML VIAL As Ordered ONE
[2022-03-11 11:21] LABS: BASO % 0.4 % (0.0-1.0); EOS # 0.1 10^3/uL (0.0-0.5); EOS % 1.6 % (0.0-3.0); HEMATOCRIT 36.2 % (36.0-47.0); HEMOGLOBIN 11.4 g/dl (12.0-15.5); LYMPH # 1.8 10^3/uL (1.5-5.0); LYMPH % 31.8 % (24.0-44.0); MEAN CORPUSCULAR HGB CONC 31.5 g/dl (32.0-36.5); MEAN CORPUSCULAR VOLUME 95.3 fl (80.0-96.0); MONO # 0.5 10^3/uL (0.0-0.8); NEUTROPHILS # 3.2 10^3/uL (1.5-8.5); NEUTROPHILS % 56.8 % (36.0-66.0); PLATELET COUNT, AUTOMATED 229 10^3/uL (150-450); WHITE BLOOD COUNT 5.5 10^3/uL (4.0-10.0)
[2022-03-11 11:52] LABS: ALBUMIN 3.5 GM/DL (3.2-5.2); ALT/SGPT 11 U/L (12-78); BILIRUBIN,TOTAL 0.6 MG/DL (0.2-1.0); BLOOD UREA NITROGEN 12 MG/DL (7-18); CALCIUM LEVEL 9.1 MG/DL (8.8-10.2); CARBON DIOXIDE LEVEL 31 MEQ/L (21-32); CHLORIDE LEVEL 104 MEQ/L (98-107); CHOLESTEROL LEVEL 128 MG/DL (<200); CHOLESTEROL RISK RATIO 1.684 (<5); CREATININE FOR GFR 0.94 MG/DL (0.55-1.30); GLOMERULAR FILTRATION RATE > 60.0 (>45); GLUCOSE, FASTING 81 MG/DL (70-100); HDL CHOLESTEROL 76 MG/DL (>40); LDL CHOLESTEROL 41 MG/DL (<100); NON-HDL-C 52 MG/DL; POTASSIUM SERUM 4.2 MEQ/L (3.5-5.1); SODIUM LEVEL 139 MEQ/L (136-145); TOTAL PROTEIN 7.1 GM/DL (6.4-8.2); TRIGLYCERIDES LEVEL 57 MG/DL (<150)
== END ==
PROVIDERS: ATTEND Internal Medicine
DX: I10 Essential (primary) hypertension (principal)

== ENCOUNTER 2022-04-01 08:52 | Outpatient (RCR) | payer MEDICARE, MEDICAID ==
[~2022-04-01 08:52] MED LIST changes: -CILO50TA PO; +CILO50TA2 PO; +CLOP75TA99 PO; -PLAV1TAB2 PO
== END 2022-04-08 23:59 | disposition home or self-care (01) ==
LOC: M PT 08:52
PROVIDERS: ATTEND Internal Medicine
DX: I69.893 Ataxia following other cerebrovascular disease (principal)

== ENCOUNTER 2022-04-15 23:04 | Emergency (ER) | payer MEDICARE, MEDICAID ==
[~2022-04-15] VITALS: Ht 170.2 cm; Wt 60.6 kg
[2022-04-16] MEDS ORDERED: diazePAM 2 MG TAB PO ONE (00:05)
[2022-04-16] MEDS ORDERED: traMADol 50 MG TAB PO ONE (01:40)
[2022-04-16 01:51] VITALS: BP 142/61
[2022-04-16] MEDS ORDERED: TRAM50TA2 PO ×2 (01:56→19:13)
[2022-04-16] MEDS ORDERED: Acetaminophen Tab PO (19:13)
== END 2022-04-16 02:03 | disposition home or self-care (01) ==
LOC: M ED 23:04 → EDBD 23:04 → M ED 04-16 02:03
DX: M25.551 Pain in right hip (principal); I10 Essential (primary) hypertension; E78.5 Hyperlipidemia, unspecified; F17.200 Nicotine dependence, unspecified, uncomplicated; Z88.1 Allergy status to other antibiotic agents; Z88.6 Allergy status to analgesic agent; Z79.811 Long term (current) use of aromatase inhibitors; Z79.891 Long term (current) use of opiate analgesic; Z79.899 Other long term (current) drug therapy

== ENCOUNTER 2022-05-07 12:33 | Outpatient (RCR) | payer MEDICARE, MEDICAID | END 2022-05-08 | LOC: M PT 12:33 | PROVIDERS: ATTEND Internal Medicine | DX: I69.893 Ataxia following other cerebrovascular disease (principal) ==

== ENCOUNTER → 2022-06-11 | Outpatient (REF) | payer MEDICARE, MEDICAID | PROVIDERS: ATTEND Internal Medicine | DX: Z20.822 Contact with and (suspected) exposure to COVID-19 (principal) ==

== ENCOUNTER → 2022-09-23 | Outpatient (REF) | payer MEDICARE, MEDICAID ==
[2022-09-23 12:14] LABS: FREE T4 0.93 NG/DL (0.89-1.76); THYROID STIMULATING HORMONE 2.151 uIU/ML (0.55-4.78)
== END ==
PROVIDERS: ATTEND Internal Medicine
DX: E03.9 Hypothyroidism, unspecified (principal)

== ENCOUNTER → 2022-10-10 | Outpatient (CLI) | payer MEDICARE, MEDICAID | LOC: M WHC 10:11 | PROVIDERS: ATTEND Internal Medicine | DX: Z13.820 Encounter for screening for osteoporosis (principal); M85.852 Other specified disorders of bone density and structure, left thigh; Z78.0 Asymptomatic menopausal state ==

== ENCOUNTER → 2023-01-31 | Outpatient (REF) ==
[~2023-01-31] MED LIST changes: +SENN-111 PO; -SENN18TA PO
[2023-01-31 08:25] LABS: HEMATOCRIT 26.6 % (36.0-47.0); HEMOGLOBIN 8.5 g/dl (12.0-15.5); MEAN CORPUSCULAR HEMOGLOBIN 30.5 pg (27.0-33.0); MEAN CORPUSCULAR VOLUME 95.3 fl (80.0-96.0); PLATELET COUNT, AUTOMATED 319 10^3/uL (150-450); RED BLOOD COUNT 2.79 10^6/uL (4.00-5.40)
[2023-01-31 08:51] LABS: BLOOD UREA NITROGEN 5 MG/DL (9-23); CALCIUM LEVEL 7.8 MG/DL (8.3-10.6); CARBON DIOXIDE LEVEL 26 MMOL/L (20-31); CHLORIDE LEVEL 105 MMOL/L (98-107); GLOMERULAR FILTRATION RATE > 60.0 (>45); GLUCOSE, FASTING 85 MG/DL (74-106); POTASSIUM SERUM 4.1 MMOL/L (3.5-5.1); SODIUM LEVEL 136 MMOL/L (136-145)
== END ==
PROVIDERS: ATTEND Internal Medicine
DX: S72.001D Fracture of unspecified part of neck of right femur, subsequent encounter for closed fracture with routine healing (principal)

== ENCOUNTER → 2023-02-03 | Outpatient (REF) | PROVIDERS: ATTEND Physician Assistant | DX: S72.001D Fracture of unspecified part of neck of right femur, subsequent encounter for closed fracture with routine healing (principal); Z53.8 Procedure and treatment not carried out for other reasons ==

== ENCOUNTER → 2023-02-05 | Outpatient (REF) ==
[2023-02-05 09:26] LABS: HEMATOCRIT 28.6 % (36.0-47.0); HEMOGLOBIN 9.1 g/dl (12.0-15.5); MEAN CORPUSCULAR HGB CONC 31.8 g/dl (32.0-36.5); MEAN CORPUSCULAR VOLUME 97.3 fl (80.0-96.0); PLATELET COUNT, AUTOMATED 495 10^3/uL (150-450); RED BLOOD COUNT 2.94 10^6/uL (4.00-5.40); WHITE BLOOD COUNT 9.8 10^3/uL (4.0-10.0)
[2023-02-05 09:44] LABS: BLOOD UREA NITROGEN 18 MG/DL (9-23); CALCIUM LEVEL 8.3 MG/DL (8.3-10.6); CARBON DIOXIDE LEVEL 27 MMOL/L (20-31); CHLORIDE LEVEL 105 MMOL/L (98-107); CREATININE FOR GFR 0.64 MG/DL (0.55-1.30); GLOMERULAR FILTRATION RATE > 60.0 (>45); GLUCOSE, FASTING 73 MG/DL (74-106); POTASSIUM SERUM 4.5 MMOL/L (3.5-5.1); SODIUM LEVEL 138 MMOL/L (136-145)
== END ==
PROVIDERS: ATTEND Internal Medicine
DX: S72.009D Fracture of unspecified part of neck of unspecified femur, subsequent encounter for closed fracture with routine healing (principal)

== ENCOUNTER → 2023-02-19 | Outpatient (REF) | PROVIDERS: ATTEND Physician Assistant | DX: S72.001D Fracture of unspecified part of neck of right femur, subsequent encounter for closed fracture with routine healing (principal); Z53.8 Procedure and treatment not carried out for other reasons ==

== ENCOUNTER → 2023-03-12 | Outpatient (CLI) | payer MEDICARE, MEDICAID ==
[~2023-03-12] MED LIST changes: +ISOVUE-370 76% 100ML VIAL As Ordered ONE
== END ==
LOC: M RAD 13:19
PROVIDERS: ATTEND Surgery
DX: I71.20 Thoracic aortic aneurysm, without rupture, unspecified (principal); J43.9 Emphysema, unspecified
CPT/HCPCS: 71260; 74174; Q9967

== ENCOUNTER 2023-05-26 17:28 | Emergency (ER) | payer MEDICARE, MEDICAID ==
[~2023-05-26] VITALS: Ht 167.6 cm; Wt 50.6 kg
[~2023-05-26 17:28] MED LIST changes: -ISOVUE-370 76% 100ML VIAL As Ordered ONE
[2023-05-26 18:34] LABS: BASO % 0.2 % (0.0-1.0); EOS # 0.1 10^3/uL (0.0-0.5); EOS % 0.7 % (0.0-3.0); HEMATOCRIT 36.5 % (36.0-47.0); HEMOGLOBIN 11.4 g/dl (12.0-15.5); LYMPH # 1.9 10^3/uL (1.5-5.0); LYMPH % 19.8 % (24.0-44.0); MEAN CORPUSCULAR HEMOGLOBIN 29.4 pg (27.0-33.0); MEAN CORPUSCULAR HGB CONC 31.2 g/dl (32.0-36.5); MEAN CORPUSCULAR VOLUME 94.1 fl (80.0-96.0); MONO # 0.9 10^3/uL (0.0-0.8); NEUTROPHILS # 6.6 10^3/uL (1.5-8.5); NEUTROPHILS % 69.9 % (36.0-66.0); PLATELET COUNT, AUTOMATED 266 10^3/uL (150-450); RED BLOOD COUNT 3.88 10^6/uL (4.00-5.40); WHITE BLOOD COUNT 9.4 10^3/uL (4.0-10.0)
[2023-05-26 18:45] LABS: INR 1.17; PROTHROMBIN TIME 14.6 SECONDS (12.5-14.5)
[2023-05-26 18:46] LABS: PARTIAL THROMBOPLASTIN TIME 38.9 SECONDS (24.8-34.2)
[2023-05-26 18:55] LABS: CK-MB VALUE MASS 2.2 NG/ML (<3.6)
[2023-05-26 19:01] LABS: MB/CK RELATIVE INDEX 1.44 (< OR =4)
[2023-05-26 19:10] LABS: RSV AMPLIFICATION NEGATIVE (NEGATIVE)
[2023-05-26] MEDS ORDERED: SENN-23 PO (19:52)
[2023-05-26] MEDS ORDERED: ALEN70TA82 PO (19:52)
[2023-05-26] MEDS ORDERED: LEVO25TA5 PO (19:52)
[2023-05-26] MEDS ORDERED: ATOR40TA75 PO (19:52)
[2023-05-26] MEDS ORDERED: HYDR-643 PO (19:52)
[2023-05-26] MEDS ORDERED: AMLO2.5T3 PO (19:52)
[2023-05-26] MEDS ORDERED: OMEP-173 PO (19:52)
[2023-05-26] MEDS ORDERED: BISO5TAB14 PO (19:52)
[2023-05-26] MEDS ORDERED: SERT50TA29 PO (19:53)
[2023-05-26] MEDS ORDERED: ACET-897 PO (20:00)
[2023-05-26] MEDS ORDERED: OXYC-517 PO (20:00)
[2023-05-26] MEDS ORDERED: POLY17PO10 PO (20:00)
[2023-05-26] MEDS ORDERED: JUVE1POW PO (20:00)
[2023-05-26] MEDS ORDERED: XARE10TA PO (20:00)
[2023-05-26] MEDS ORDERED: HOME MED LIST COMPLETE! XX SCH (20:05)
[2023-05-26] MEDS ORDERED: ISOVUE-370 76% 100ML VIAL As Ordered ONE (20:20)
[2023-05-26 22:00] VITALS: O2SAT 99
[2023-05-26 23:32] VITALS: BP 160/72
[2023-05-26 23:33] VITALS: TEMP 98.2
== END 2023-05-26 23:48 | disposition home or self-care (01) ==
LOC: M ED 17:28 → EDBD 17:28 → M ED 23:48
DX: R42 Dizziness and giddiness (principal); I10 Essential (primary) hypertension; J44.9 Chronic obstructive pulmonary disease, unspecified; E78.5 Hyperlipidemia, unspecified; K21.9 Gastro-esophageal reflux disease without esophagitis; F32.A Depression, unspecified; E03.9 Hypothyroidism, unspecified; Z86.79 Personal history of other diseases of the circulatory system; Z88.1 Allergy status to other antibiotic agents; Z88.6 Allergy status to analgesic agent; Z79.83 Long term (current) use of bisphosphonates; Z79.899 Other long term (current) drug therapy; Z79.1 Long term (current) use of non-steroidal anti-inflammatories (NSAID)
CPT/HCPCS: 36415; 70450; 70496; 70498; 71045; 80047; 82550; 82553; 84484; 85025; 85610; 85730; 86850; 86900; 86901; 87631; 93005; 93041; 94760; 99285; Q9967

== ENCOUNTER → 2023-06-12 | Outpatient (REF) | payer MEDICARE, MEDICAID ==
[~2023-06-12] MED LIST changes: +ACET-897 PO; +ALEN70TA82 PO; +AMLO2.5T3 PO; +ATOR40TA75 PO; +HYDR-643 PO; +JUVE1POW PO; +LEVO25TA5 PO; +OMEP-173 PO; +OXYC-517 PO; +POLY17PO10 PO; +SENN-23 PO; +SERT50TA29 PO; +XARE10TA PO
[2023-06-12 16:57] LABS: RSV AMPLIFICATION NEGATIVE (NEGATIVE)
== END ==
PROVIDERS: ATTEND Internal Medicine
DX: R09.89 Other specified symptoms and signs involving the circulatory and respiratory systems (principal)

== ENCOUNTER → 2023-07-11 | Outpatient (REF) | payer MEDICARE, MEDICAID ==
[2023-07-11 08:51] LABS: BASO % 0.4 % (0.0-1.0); EOS # 0.1 10^3/uL (0.0-0.5); HEMATOCRIT 32.4 % (36.0-47.0); HEMOGLOBIN 10.2 g/dl (12.0-15.5); LYMPH # 1.8 10^3/uL (1.5-5.0); LYMPH % 22.8 % (24.0-44.0); MEAN CORPUSCULAR HEMOGLOBIN 29.5 pg (27.0-33.0); MEAN CORPUSCULAR HGB CONC 31.5 g/dl (32.0-36.5); MEAN CORPUSCULAR VOLUME 93.6 fl (80.0-96.0); MONO # 0.7 10^3/uL (0.0-0.8); MONO % 9.5 % (2.0-8.0); NEUTROPHILS # 5.1 10^3/uL (1.5-8.5); NEUTROPHILS % 65.9 % (36.0-66.0); PLATELET COUNT, AUTOMATED 279 10^3/uL (150-450); RED BLOOD COUNT 3.46 10^6/uL (4.00-5.40); WHITE BLOOD COUNT 7.8 10^3/uL (4.0-10.0)
[2023-07-11 09:00] LABS: ERYTHROCYTE SEDIMENTATION RATE 28 mm/hr (0-30)
[2023-07-11 09:10] LABS: HEMOGLOBIN A1c 5.5 % (4.0-6.0)
[2023-07-11 09:12] LABS: ALBUMIN 2.8 G/DL (3.2-5.2); BLOOD UREA NITROGEN 27 MG/DL (9-23); CALCIUM LEVEL 8.6 MG/DL (8.3-10.6); CARBON DIOXIDE LEVEL 29 MMOL/L (20-31); CHLORIDE LEVEL 111 MMOL/L (98-107); CREATININE FOR GFR 0.82 MG/DL (0.55-1.30); GLOMERULAR FILTRATION RATE > 60.0 (>45); GLUCOSE, FASTING 87 MG/DL (74-106); POTASSIUM SERUM 3.9 MMOL/L (3.5-5.1); SODIUM LEVEL 145 MMOL/L (136-145)
[2023-07-11 09:15] LABS: FOLATE 9.5 NG/ML (>5.4); VITAMIN B12 LEVEL 728 PG/ML (211-911)
[2023-07-16 11:36] LABS: DRVV SCREEN 97.9 SECONDS
[2023-07-16 11:38] LABS: PTT LUPUS TYPE ANTICOAG SCREEN 2.34 (0-1.20)
[2023-07-16 11:46] LABS: DRVV CONFIRM 53.4 SECONDS; LUPUS CONFIRM RATIO 1.38
[2023-07-16 11:52] LABS: NORMALIZED RATIO 1.69 (0.00-1.20)
[2023-07-18 13:07] LABS: HEXAGONAL PHASE PHOSPHOLIPID 14 sec (0-11)
[2023-07-21 15:08] LABS: ANTINUCLEAR ANTIBODIES DIRECT Negative (Negative); F8 ACTIVITY FOR F8 PANEL 128 % (56-140); F8 ACTIVITY vWB FOR F8 PANEL 155 % (50-200); F8 ANTIGEN FOR F8 PANEL 164 % (50-200); PROTEIN C FUNCTIONAL ACTIVITY 101 % (73-180); PROTEIN S FUNCTIONAL ACTIVITY 81 % (63-140); VITAMIN B6,PYRIDOXAL PHOSPHATE 2.3 ug/L (3.4-65.2); VITAMIN E(ALPHA TOCOPHEROL) 10.1 mg/L (9.0-29.0); VITAMIN E(GAMMA TOCOPHEROL) 0.9 mg/L (0.5-4.9)
== END ==
PROVIDERS: ATTEND Psychiatry & Neurology Neurology
DX: I69.351 Hemiplegia and hemiparesis following cerebral infarction affecting right dominant side (principal); Z79.899 Other long term (current) drug therapy; Z79.01 Long term (current) use of anticoagulants

== ENCOUNTER → 2023-08-04 | Outpatient (REF) | payer MEDICARE, MEDICAID ==
[2023-08-04 10:55] LABS: APPEARANCE, URINE CLOUDY (CLEAR); BACTERIA, URINE AUTO 2+ (NEGATIVE); BILIRUBIN, URINE AUTO NEGATIVE (NEGATIVE); BLOOD, URINE BLOOD NEGATIVE (NEGATIVE); COLOR, URINE YELLOW (YELLOW); GLUCOSE, URINE (UA) AUTO NEGATIVE (NEGATIVE); KETONE, URINE AUTO NEGATIVE (NEGATIVE); LEUKOCYTE ESTERASE, URINE AUTO 3+ (NEGATIVE); MUCUS, URINE SMALL (NEGATIVE); NITRITE, URINE AUTO POSITIVE (NEGATIVE); PROTEIN, URINE AUTO 1+ mg/dL (NEGATIVE); RBC, URINE AUTO 20 /HPF (0-3); SPECIFIC GRAVITY URINE AUTO 1.019 (1.002-1.035); SQUAMOUS EPITHELIAL CELL UR AU 0 /HPF (0-6); UROBILINOGEN, URINE AUTO 0.2 mg/dL (0.0-2.0); WBC, URINE AUTO TNTC /HPF (0-3)
== END ==
PROVIDERS: ATTEND Internal Medicine
DX: R30.9 Painful micturition, unspecified (principal)

== ENCOUNTER → 2023-09-08 | Outpatient (CLI) | payer MEDICARE, MEDICAID | LOC: M PLAIMG 09:40 | PROVIDERS: ATTEND Internal Medicine | DX: M16.11 Unilateral primary osteoarthritis, right hip (principal); Z96.641 Presence of right artificial hip joint ==

== ENCOUNTER → 2023-09-09 | Outpatient (CLI) | payer MEDICARE, MEDICAID | LOC: M SOG 13:58 | PROVIDERS: ATTEND Physician Assistant | DX: M79.604 Pain in right leg (principal); Z87.81 Personal history of (healed) traumatic fracture ==

== ENCOUNTER → 2023-10-09 | Outpatient (REF) | payer MEDICARE, MEDICAID | PROVIDERS: ATTEND Internal Medicine | DX: R05.9 Cough, unspecified (principal); R51.9 Headache, unspecified; R09.89 Other specified symptoms and signs involving the circulatory and respiratory systems ==

== ENCOUNTER → 2024-03-22 | Outpatient (REF) | payer MEDICARE, MEDICAID ==
[~2024-03-22] MED LIST changes: -SENN-111 PO; +SENN-165 PO
[2024-03-22 09:59] LABS: BLOOD UREA NITROGEN 26 MG/DL (9-23); CALCIUM LEVEL 8.9 MG/DL (8.3-10.6); CARBON DIOXIDE LEVEL 28 MMOL/L (20-31); CHLORIDE LEVEL 108 MMOL/L (98-107); CREATININE FOR GFR 0.79 MG/DL (0.55-1.30); GLOMERULAR FILTRATION RATE > 60.0 (>45); GLUCOSE, FASTING 97 MG/DL (74-106); POTASSIUM SERUM 3.4 MMOL/L (3.5-5.1); SODIUM LEVEL 139 MMOL/L (136-145)
== END ==
PROVIDERS: ATTEND Internal Medicine
DX: I10 Essential (primary) hypertension (principal)

== ENCOUNTER → 2024-03-22 | Outpatient (REF) | payer MEDICARE, MEDICAID ==
[2024-03-22 15:12] LABS: RSV AMPLIFICATION NEGATIVE (NEGATIVE)
== END ==
PROVIDERS: ATTEND Internal Medicine
DX: R09.89 Other specified symptoms and signs involving the circulatory and respiratory systems (principal)

== ENCOUNTER → 2024-04-09 | Outpatient (REF) | payer MEDICARE, MEDICAID ==
[2024-04-09 08:48] LABS: BASO % 0.6 % (0.0-1.0); EOS # 0.1 10^3/uL (0.0-0.5); EOS % 1.8 % (0.0-3.0); HEMOGLOBIN 10.2 g/dl (12.0-15.5); LYMPH # 1.7 10^3/uL (1.5-5.0); LYMPH % 32.2 % (24.0-44.0); MEAN CORPUSCULAR HEMOGLOBIN 29.2 pg (27.0-33.0); MEAN CORPUSCULAR HGB CONC 31.9 g/dl (32.0-36.5); MEAN CORPUSCULAR VOLUME 91.7 fl (80.0-96.0); MONO # 0.7 10^3/uL (0.0-0.8); MONO % 13.1 % (2.0-8.0); NEUTROPHILS # 2.7 10^3/uL (1.5-8.5); NEUTROPHILS % 52.1 % (36.0-66.0); PLATELET COUNT, AUTOMATED 226 10^3/uL (150-450); RED BLOOD COUNT 3.49 10^6/uL (4.00-5.40); WHITE BLOOD COUNT 5.1 10^3/uL (4.0-10.0)
[2024-04-09 09:21] LABS: ALBUMIN 2.9 G/DL (3.2-5.2); ALKALINE PHOSPHATASE 58 U/L (35-104); ALT/SGPT 15 U/L (7.0-40); AST/SGOT 21 U/L (<34); BILIRUBIN,TOTAL 0.3 MG/DL (0.3-1.2); BLOOD UREA NITROGEN 24 MG/DL (9-23); CALCIUM LEVEL 9.1 MG/DL (8.3-10.6); CARBON DIOXIDE LEVEL 27 MMOL/L (20-31); CHLORIDE LEVEL 112 MMOL/L (98-107); CHOLESTEROL LEVEL 108 MG/DL (<200); CHOLESTEROL RISK RATIO 1.84 (<5); CREATININE FOR GFR 0.83 MG/DL (0.55-1.30); GLOMERULAR FILTRATION RATE > 60.0 (>45); GLUCOSE, FASTING 89 MG/DL (74-106); HDL CHOLESTEROL 58.6 MG/DL (>40); LDL CHOLESTEROL 39.8 MG/DL (<100); NON-HDL-C 49.4 MG/DL; POTASSIUM SERUM 3.9 MMOL/L (3.5-5.1); SODIUM LEVEL 143 MMOL/L (136-145); TRIGLYCERIDES LEVEL 48 MG/DL (<150)
== END ==
PROVIDERS: ATTEND Internal Medicine
DX: I10 Essential (primary) hypertension (principal)

== ENCOUNTER → 2024-04-22 | Outpatient (CLI) | payer MEDICARE, MEDICAID ==
[~2024-04-22] MED LIST changes: +ISOVUE-370 76% 100ML VIAL As Ordered ONE
== END ==
LOC: M RAD 15:19
PROVIDERS: ATTEND Surgery
DX: I71.42 Juxtarenal abdominal aortic aneurysm, without rupture (principal); I71.20 Thoracic aortic aneurysm, without rupture, unspecified; J44.9 Chronic obstructive pulmonary disease, unspecified
CPT/HCPCS: 71260; 74177; Q9967

== ENCOUNTER 2024-08-09 10:51 | Emergency (ER) | payer MEDICARE, MEDICAID ==
[~2024-08-09] VITALS: Ht 167.6 cm; Wt 48.9 kg
[~2024-08-09 10:51] MED LIST changes: -ISOVUE-370 76% 100ML VIAL As Ordered ONE
[2024-08-09 12:36] LABS: BASO % 0.3 % (0.0-1.0); EOS % 0.3 % (0.0-3.0); HEMATOCRIT 32.1 % (36.0-47.0); HEMOGLOBIN 10.2 g/dl (12.0-15.5); LYMPH # 1.2 10^3/uL (1.5-5.0); LYMPH % 8.1 % (24.0-44.0); MEAN CORPUSCULAR HEMOGLOBIN 29.1 pg (27.0-33.0); MEAN CORPUSCULAR HGB CONC 31.8 g/dl (32.0-36.5); MEAN CORPUSCULAR VOLUME 91.5 fl (80.0-96.0); MONO # 1.1 10^3/uL (0.0-0.8); MONO % 7.6 % (2.0-8.0); NEUTROPHILS # 12.1 10^3/uL (1.5-8.5); NEUTROPHILS % 83.2 % (36.0-66.0); PLATELET COUNT, AUTOMATED 302 10^3/uL (150-450); RED BLOOD COUNT 3.51 10^6/uL (4.00-5.40); WHITE BLOOD COUNT 14.5 10^3/uL (4.0-10.0)
[2024-08-09 13:10] LABS: ALBUMIN 2.8 G/DL (3.2-5.2); ALKALINE PHOSPHATASE 73 U/L (35-104); ALT/SGPT 10 U/L (7.0-40); AST/SGOT 17 U/L (<34); BILIRUBIN,TOTAL 0.5 MG/DL (0.3-1.2); BLOOD UREA NITROGEN 23 MG/DL (9-23); CALCIUM LEVEL 8.4 MG/DL (8.3-10.6); CARBON DIOXIDE LEVEL 27 MMOL/L (20-31); CHLORIDE LEVEL 108 MMOL/L (98-107); CREATININE FOR GFR 0.75 MG/DL (0.55-1.30); GLOMERULAR FILTRATION RATE > 60.0 (>45); GLUCOSE, FASTING 100 MG/DL (74-106); POTASSIUM SERUM 4.1 MMOL/L (3.5-5.1); SODIUM LEVEL 143 MMOL/L (136-145); TOTAL PROTEIN 6.4 G/DL (5.7-8.2)
[2024-08-09] MEDS ORDERED: AMOX875T2 PO (13:16)
[2024-08-09] MEDS ORDERED: ZITHTAB PO (13:16)
[2024-08-09 13:26] VITALS: BP 131/63; TEMP 97; O2SAT 96
== END 2024-08-09 15:46 | disposition home or self-care (01) ==
LOC: EDBD 10:51 → M ED 10:51
DX: J18.9 Pneumonia, unspecified organism (principal); I10 Essential (primary) hypertension; J44.9 Chronic obstructive pulmonary disease, unspecified; E03.9 Hypothyroidism, unspecified; Z79.2 Long term (current) use of antibiotics; Z79.02 Long term (current) use of antithrombotics/antiplatelets; Z79.899 Other long term (current) drug therapy; Z79.1 Long term (current) use of non-steroidal anti-inflammatories (NSAID); Z88.1 Allergy status to other antibiotic agents; Z88.6 Allergy status to analgesic agent; Z86.79 Personal history of other diseases of the circulatory system

== ENCOUNTER 2024-12-08 02:14 | Emergency (ER) | payer MEDICARE, MEDICAID ==
[~2024-12-08] VITALS: Ht 170.2 cm; Wt 54.2 kg
[~2024-12-08 02:14] MED LIST changes: +AMOX875T2 PO; -PREG50CA PO; +PREG50CA87 PO; +ZITHTAB PO
[2024-12-08 02:55] LABS: BASO # 0.0 10^3/uL (0.0-0.2); BASO % 0.6 % (0.0-1.0); EOS # 0.1 10^3/uL (0.0-0.5); EOS % 1.9 % (0.0-3.0); LYMPH # 2.2 10^3/uL (1.5-5.0); LYMPH % 31.2 % (24.0-44.0); MONO # 0.8 10^3/uL (0.0-0.8); MONO % 11.2 % (2.0-8.0); NEUTROPHILS # 3.8 10^3/uL (1.5-8.5); NEUTROPHILS % 54.8 % (36.0-66.0); PLATELET COUNT, AUTOMATED 218 10^3/uL (150-450)
[2024-12-08 03:27] LABS: ALT/SGPT 34 U/L (7.0-40); AST/SGOT 43 U/L (<34); CALCIUM LEVEL 8.5 MG/DL (8.3-10.6); CARBON DIOXIDE LEVEL 27 MMOL/L (20-31); CHLORIDE LEVEL 106 MMOL/L (98-107); CK-MB VALUE MASS 3.9 NG/ML (<3.6); CREATININE FOR GFR 0.90 MG/DL (0.55-1.30); GLOMERULAR FILTRATION RATE 69.6 (>45); POTASSIUM SERUM 3.7 MMOL/L (3.5-5.1); SODIUM LEVEL 143 MMOL/L (136-145)
[2024-12-08 03:31] LABS: CPK CREATINE PHOSPHOKINASE 180 U/L (34-145); MB/CK RELATIVE INDEX 2.16 (< OR =4)
[2024-12-08] MEDS ORDERED: ISOVUE-370 76% 100 ML VIAL As Ordered ONE (04:22)
[2024-12-08 04:46] LABS: CK-MB VALUE MASS 3.8 NG/ML (<3.6)
[2024-12-08 04:54] LABS: CPK CREATINE PHOSPHOKINASE 177.0 U/L (34-145); MB/CK RELATIVE INDEX 2.14 (< OR =4)
[2024-12-08 05:45] VITALS: BP 135/56; TEMP 97.8; O2SAT 95
== END 2024-12-08 06:12 | disposition home or self-care (01) ==
LOC: M ED 02:14
DX: R07.9 Chest pain, unspecified (principal); I51.7 Cardiomegaly; J98.11 Atelectasis; J43.9 Emphysema, unspecified; I10 Essential (primary) hypertension; F17.200 Nicotine dependence, unspecified, uncomplicated; Z86.79 Personal history of other diseases of the circulatory system; Z86.73 Personal history of transient ischemic attack (TIA), and cerebral infarction without residual deficits; Z88.1 Allergy status to other antibiotic agents; Z88.6 Allergy status to analgesic agent; Z79.1 Long term (current) use of non-steroidal anti-inflammatories (NSAID); Z79.899 Other long term (current) drug therapy; Z79.2 Long term (current) use of antibiotics
CPT/HCPCS: 36415; 71045; 71275; 80048; 80076; 82550; 82553; 83690; 83880; 84443; 84484; 85025; 85379; 93005; 93041; 94760; 99285; Q9967

== ENCOUNTER → 2025-02-24 | Outpatient (REF) | payer MEDICARE, MEDICAID | LOC: M LAB REF 13:07 | PROVIDERS: ATTEND Internal Medicine | DX: Z53.9 Procedure and treatment not carried out, unspecified reason (principal) ==

== ENCOUNTER → 2025-03-18 | Outpatient (CLI) | payer MEDICARE, MEDICAID | LOC: M WHC 12:59 | PROVIDERS: ATTEND Internal Medicine | DX: M81.0 Age-related osteoporosis without current pathological fracture (principal) ==

== ENCOUNTER → 2025-03-24 | Outpatient (REF) | payer MEDICARE, MEDICAID ==
[2025-03-25 14:12] LABS: APPEARANCE, URINE CLOUDY (CLEAR); BACTERIA, URINE AUTO 3+ (NEGATIVE); BILIRUBIN, URINE AUTO NEGATIVE (NEGATIVE); BLOOD, URINE BLOOD 1+ (NEGATIVE); GLUCOSE, URINE (UA) AUTO NEGATIVE (NEGATIVE); KETONE, URINE AUTO NEGATIVE (NEGATIVE); LEUKOCYTE ESTERASE, URINE AUTO 2+ (NEGATIVE); MUCUS, URINE SMALL (NEGATIVE); NITRITE, URINE AUTO NEGATIVE (NEGATIVE); PROTEIN, URINE AUTO 1+ mg/dL (NEGATIVE); RBC, URINE AUTO 27 /HPF (0-3); SPECIFIC GRAVITY URINE AUTO 1.021 (1.002-1.035); SQUAMOUS EPITHELIAL CELL UR AU 2 /HPF (0-6); UROBILINOGEN, URINE AUTO 0.2 mg/dL (0.0-2.0); WBC, URINE AUTO TNTC /HPF (0-3)
== END ==
PROVIDERS: ATTEND Internal Medicine
DX: R39.9 Unspecified symptoms and signs involving the genitourinary system (principal)